=== PATIENT | female | born 1995 | race Caucasian/White ===

== ENCOUNTER 2018-02-22 21:26 | Emergency (ER) | payer MEDICAID ==
[~2018-02-22] VITALS: Ht 175.3 cm; Wt 78.0 kg
[2018-02-22 23:49] VITALS: BP 137/66
[2018-02-23] MEDS ORDERED: IBUPROFEN 600 MG TAB PO ONE (00:45)
[2018-02-23] MEDS ORDERED: HYDROcodone-ACET 10/325MG TAB PO ONE (00:45)
== END 2018-02-23 01:17 | disposition home or self-care (01) ==
LOC: ER 21:26
DX: M23.91 Unspecified internal derangement of right knee (principal); X58.XXXA Exposure to other specified factors, initial encounter; Y93.51 Activity, roller skating (inline) and skateboarding; Y92.89 Other specified places as the place of occurrence of the external cause; Y99.8 Other external cause status
CPT/HCPCS: 73562; 81025